=== PATIENT | female | born 1940 | race Caucasian/White ===

== ENCOUNTER 2017-12-11 13:40 | Inpatient (IN) | payer MEDICARE ==
[~2017-12-11 13:40] MED LIST: ISOVUE-370 76%-LOCM 1 ML ONE
--- NOTE | 2017-12-11 15:05 | CT ---
THORACIC SPINE CT SCAN WITHOUT IV CONTRAST; Date; 12/11/17 HISTORY: 77-year-old female with back pain following a slip and fall. FINDINGS: Noncontrast thoracic spine CT scan obtained. There is a severe burst fracture involving the T10 verte bral body with marked vertical height loss and some comminution with some mild retropulsion and mild indention of the ventral thecal sac, but without significant high grade central canal stenosis. The p osterior elements appear intact. There is no evidence for significant malalignment. There are noted t o be multiple small, less than 0.5 cm, nodular foci in both lungs, primarily subpleural in origin. No visualized rib fractures seen. IMPRESSION: Severe comminuted burst fracture of T10 vertebral body with severe vertical height loss and comminuti on with some mild retropulsion and very mild canal stenosis. Multiple small bilateral pulmonary nodul es up to approximately 0.4 cm in size. No other acute process. CODE LN. POS: [facility]
--- NOTE | 2017-12-11 15:14 | RAD ---
CHEST 1 VIEW: Date: 12/11/17 HISTORY: 77-year-old female with history of pain following a slip and fall. FINDINGS: Heart size is within normal limits. Mild linear and interstitial increased markings bilaterally havin g more of a chronic appearance. Vertical height loss of T10. No evidence for overt rib fracture, pneu mothorax, or pleural effusion. Mild chronic changes. No acute intrathoracic disease. POS: [facility]
[2017-12-11] MEDS ORDERED: Morphine 2 MG/ML SYRINGE ONE (16:15)
--- NOTE | 2017-12-11 17:14 | CT ---
CT BRAIN WITHOUT CONTRASTS: History: Fall. Comparison: None. FINDINGS: No acute territory infarct or hemorrhage. No midline shift or mass effect. Old lacunar infarct. Paranasal sinuses and mastoids are clear. IMPRESSION: No acute intracranial abnormality. POS: [facility]
[2017-12-11 17:42] LABS: #Basophils 0.1 thou/uL (0.0-0.2); #Eosinphils 0.6 thou/uL (0.0-0.7); #Lymphocytes 1.8 thou/uL (1.20-3.40); #Monocytes 1.1 thou/uL (0.11-0.59); #Neutrophils 9.1 thou/uL (1.40-6.50); %Basophils 0.6 % (0.0-1.0); %Eosinophils 5.1 % (0.0-10.0); %Lymphocytes 14.3 % (21.0-51.0); %Monocytes 8.4 % (0.0-10.0); %Neutrophils 71.6 % (42.0-75.0); Hemoglobin 13.2 g/dL (12.0-16.0); Mean Corpuscular HGB CONC 31.6 g/dL (32.0-36.0); Mean Corpuscular Volume 98.2 fl (81.0-99.0); Mean Platelet Volume 6.7 fL (7.4-10.4); Platelet Count 201 thou/uL (130-400); RBC Distribution Width 13.7 % (11.5-14.5); Red Blood Cell (RBC) Count 4.27 mill/uL (4.20-5.40); White Blood Cell (WBC) Count 12.7 thou/uL (4.8-10.8)
[2017-12-11 17:48] LABS: PTT 26.3 SEC (22.9-36.1); Prothrombin Time 13.7 SEC (12.0-14.7)
[2017-12-11 18:02] LABS: Anion Gap 12 mmol/L (10-20); BUN (Urea Nitrogen) 24 mg/dL (9.8-20.1); Calc. Creatinine Clearance 0 mL/min (70-130); Calcium 10.2 mg/dL (7.8-10.44); Carbon Dioxide 27 mmol/L (23-31); Chloride 102 mmol/L (98-107); Estimated GFR-MDRD 65; Glucose 86 mg/dL (83-110); Potassium 3.5 mmol/L (3.5-5.1); Sodium 137 mmol/L (136-145)
[2017-12-11 18:53] LABS: Bilirubin Negative (Negative); Blood, Urine Negative (Negative); Clarity CLEAR (Clear); Glucose, Urine (Dipstick) Negative (Negative); Leukocyte Negative (Negative); Nitrite Negative (Negative); Protein, Urine (Dipstick) Negative (Neg-Trace); Specific Gravity, Urine 1.018 (1.002-1.036); Urobilinogen 0.2 mg/dL (0.2-1.0); pH, Urine 7.5 (5.0-9.0)
--- NOTE | 2017-12-11 19:22 | PRG ---
DATE OF SERVICE: 12/11/2017 Fall, T10 fracture. Please see the Trauma PA's H&P for full details. Briefly, the patient fell sustaining T10 fracture, hemodynamically stable, neurologically intact and stable. Due to some abdominal pain, we are going to do CT of chest, abdomen, and pelvis as well. Th e patient is admitted to the Trauma service. Dr. Valenzuela already is aware of the patient. Dr. Merlin perez will take over for her care tomorrow morning.
--- NOTE | 2017-12-11 20:57 | CT ---
CT ANGIOGRAM OF THE NECK WITH AND WITHOUT CONTRAST: History: Fall with abrasion to the left neck. Comparison: None. FINDINGS: CT angiogram of the neck before and after intravenous administration of contrast are provided. Transv erse aorta is not aneurysmal. Vertebral arteries are co-dominant. No evidence for carotid dissection. There is some motion in the mid neck limiting evaluation. Left skin and subcutaneous fat contusion is seen. There is a hypodensity right lobe of the thyroid me asuring up to 11 mm. No hemodynamically significant stenosis of the carotids. Scarring in the lung apices. Moderate to severe degenerative disc space disease at C5-6. IMPRESSION: 1. Within the limits of this examination, no evidence for dissection. There is motion of the mid neck . 2. 11 mm hypodensity right lobe of the thyroid. Non-emergent ultrasound recommended. POS: [facility]
--- NOTE | 2017-12-11 21:01 | CT ---
CT ABDOMEN AND PELVIS WITH CONTRAST CT LIMITED LUMBOSACRAL SPINE WITH CONTRAST: History: Fall. Trauma. Comparison: Thoracic spine CT same day. FINDINGS: No significant change in the T10 burst fracture. Associated with this burst fracture is a coronally o riented fracture through the inferior one-third prevertebral body with no osseous attachment of the a nterior one-third vertebral body from the remaining vertebral body. There is some scarring in the flaca g bases. There are degenerative changes of the lumbar spine. No displaced fracture. The liver, gallbladder, sp so, and pancreas are all without acute injury. Moderate sized sliding hiatal hernia. No hydronephro sis. No intra mesenteric hemorrhage. No free intraperitoneal gas or fluid. Moderate diverticular disease s igmoid colon without inflammation. IMPRESSION: Aside from the T10 burst fracture, no other traumatic abnormality in the abdomen or pelvis. POS: [facility]
[2017-12-11] MEDS ORDERED: Dextrose 5% in Water 1,000 ML IV PRN (21:23)
[2017-12-11] MEDS ORDERED: Dextrose 50% Abboject 50 ML SYRINGE SLOW IVP PRN (21:23)
[2017-12-11] MEDS ORDERED: Acetaminophen 1,000 MG in Premix Bag 1 BAG IVPB PRN (21:23)
[2017-12-11] MEDS ORDERED: traMADol HCl 50 MG TAB PO PRN (21:23)
[2017-12-11] MEDS ORDERED: Ondansetron HCl/PF 4 MG/2 ML Vial IVP PRN (21:23)
[2017-12-11] MEDS ORDERED: hydrALAZINE 20 MG/ML VIAL SLOW IVP PRN (21:23)
--- NOTE | 2017-12-11 21:24 | CON ---
DATE OF CONSULTATION: 12/11/2017 HISTORY OF PRESENT ILLNESS: Ms. Rao is a 77-year-old female who [facility] to [facility] this evening after a fall. She was having severe low back pain. She has mild weakness in the legs; however, she is still able to stand and ambulate with assistance. She has no dermatomal sensory loss in the lower extremities and no signs of cauda equina syndrome. CT of the thoracic spi ne showed a T10 burst fracture with 90% height loss that is severe. There is minimal retropulsion in to the central canal. Ms. Rao has been having falls over the past 4 weeks. However, today, she i s unable to stand to her feet and she was brought to the hospital by the EMS. Neurosurgery was consu lted for the T10 burst fracture. The patient has been treated is being treated currently for the pas t 2 years by [facility] and has been on prednisone taper for temporal arteritis from 60 mg which in she is now on 12.5 mg. ALLERGIES: No known drug allergies. MEDICATIONS: 1. Taking Ecotrin full strength. 2. Taking prednisone 12.5 mg daily. The patient cannot remember the rest of her medications, please verify medications when patient's hus band brings them in. PAST MEDICAL HISTORY: Temporal arteritis, hypertension, T10 burst fracture, T12 compression fracture in 10/2017 after fall. PAST SURGICAL HISTORY: Appendectomy, hysterectomy, tonsillectomy. PSYCHIATRIC HISTORY: Anxiety. SOCIAL HISTORY: Drug use. No smoking history. REVIEW OF SYSTEMS: Patient is complaining of low back pain and general weakness in the lower extremi ties. Ten-point review of systems is complete, otherwise negative unless stated in the above HPI. PHYSICAL EXAMINATION: VITAL SIGNS: Blood pressure 141/81, pulse 76, respirations 18, O2 sats 94% on room air and temperatu re is 98.4. HEENT: Normocephalic, atraumatic. Hearing intact. Moist mucous membranes. NECK: Trachea is midline. EYES: Pupils are equal and reactive to light. Extraocular muscles are intact. Sclerae is white, no nicteric. CARDIOVASCULAR: The patient has regular rate and rhythm, normal S1, S2 heart sounds. No distal cyan osis or clubbing noted. BACK: The patient has large ecchymotic region on the left thoracic back. She does not know whether that is new or not. She also is very tender to palpation of the midline thoracic spine and has troub le rolling over in bed. She is nontender to palpation in the midline lumbar spine. RESPIRATORY: The patient has bilateral symmetric chest rise. Appears to have no shortness breath. EXTREMITIES: Upper extremities, 5/5 strength bilaterally. There is no dermatomal or sensory focal s ensory loss. Lower extremity, 4/5 strength in bilateral lower extremities. Pulses are equal and sym metric in the posterior tibial pulses. There is no sensory or focal motor weakness. NEUROLOGIC: Cranial nerves II-XII are grossly intact. Speech is fluent and she answers questions ap propriately. Patient has unsteady gait and is currently bedridden. GCS 15. ASSESSMENT: Ms. Rao is a 77-year-old female who has had several falls in the past. She fell toda y and has a severe T10 burst fracture with 90% height loss. We will put her on strict spine precauti ons, n.p.o. after midnight and put her in a TLSO clamshell brace. We will also get a PT/INR and chec k platelets. If there are any further questions, please feel free to contact Neurosurgery.
--- NOTE | 2017-12-11 21:53 | HP ---
REQUESTING PHYSICIAN: Basilia Gonzalez PA-C ADMITTING PHYSICIAN: Errol Medina MD CONSULTING PHYSICIAN: Adilia Valenzuela MD DATE OF ADMISSION: 12/11/2017 HISTORY OF PRESENT ILLNESS: The patient is a 77-year-old female who had a ground level fall earlier today. She reports she has had multiple falls in the recent past. She was told three weeks ago, she has a compression fracture of T10. She states her back pain is worse today. Workup in the ED ident ified a T10 compression fracture. Trauma services was consulted for admission and management. Dr. Margarito briceño, Neurosurgery, was consulted for the spinal fracture. The patient reports a history of temp oral arteritis. She has been on chronic steroid use. She states her pain worsen with movement. Tahira n is relieved with lying still. She denies any neuro deficits or focal weakness. PAST MEDICAL HISTORY: Hypertension, temporal arteritis. PAST SURGICAL HISTORY: Hysterectomy, tonsillectomy, and appendectomy. SOCIAL HISTORY: The patient lives at home with her . Denies alcohol use, drug use, and tobac co use. FAMILY HISTORY: Mother, father, and siblings with cancer. CURRENT LABORATORY STUDIES: CBC: WBC 12.7, RBC 4.27, hemoglobin 13.2, hematocrit 41.9, platelets 20 1. PT 13.7, INR 1.0. Chemistry: Sodium 137, potassium 3.5, chloride 102, carbon dioxide 27, BUN 24 , creatinine 0.85. DIAGNOSTIC IMAGING: Brain CT, no acute intracranial abnormality. Thoracic spine CT, severe comminut ed burst fracture of T10 vertebral body with severe vertical height loss and comminution with some mi ld retropulsion and very mild canal stenosis. Multiple small bilateral pulmonary nodules up to 0.4 c m in size. Chest, abdomen and pelvic CT pending. CTA neck pending. CURRENT MEDICATIONS: [employer]ML Forte suspension 1 drop left eye 2 times a day, prednisone 10 mg oral once a day, Nexium 40 mg oral once a day, Myrbetriq 50 mg oral once a day, cyclobenzaprine 10 mg oral once a day, simvastatin 20 mg oral once a day, calcium plus vitamin D 600 mg oral twice a day, escitalopr am 10 mg oral once a day, selenium 200 mcg oral once a day, aspirin 81 mg oral once a day, propranolo l 80 mg oral once a day, alprazolam 0.25 mg oral 3 times a day, ibuprofen 800 mg oral 2 times a day. It should be noted that the patient's has gone to collect her medication and this will be re conciled by the nurse on the floor. Medications will be restarted as appropriate. REVIEW OF SYSTEMS: Constitutional: Negative for fever, chills, or recent weight loss. HEENT: Preston es headaches, denies drainage from nose or ears. Cardiovascular: Denies chest pain. Denies palpita tions. Respiratory: Denies shortness of breath, denies cough. Gastrointestinal: Denies nausea, vo miting, diarrhea, constipation, or abdominal pain. Musculoskeletal: Endorses back pain and bilatera l rib pain. Skin: Abrasions in bilateral upper extremities and left neck. Neurologic: Reports inc rease in tremors and shuffling gait and past several months, becoming progressively worse. PHYSICAL EXAMINATION: VITAL SIGNS: Blood pressure 108/70, pulse 83, respirations 17, O2 sat 95% on room air. Pain is 0 at this time. CONSTITUTIONAL: A well-nourished, well-developed female with nontoxic appearing. HEENT: Contusion to left side of neck. No other trauma noted. Trachea midline. NECK: No JVD. RESPIRATORY: Bilateral breath sounds clear. Chest rise and fall symmetrical. CARDIOVASCULAR: Regular rate and rhythm. Heart sounds normal. ABDOMEN: Soft, nontender, nondistended. BACK: Tenderness to middle of back. Ecchymosis to left flank. EXTREMITIES: Bilateral upper extremities were neurovascularly intact, cap refill brisk. Bilateral l ower extremities were neurovascularly intact, cap refill brisk. NEUROLOGIC: GCS 15. Awake, alert, oriented x3. Strength equal in all extremities, 5/5. ASSESSMENT AND PLAN: 1. Status post ground level fall. 2. T10 compression fracture. 3. History of recent falls. 4. History of temporal arteritis. 5. History of chronic steroid use. 6. Contusion, left neck. 7. Acute traumatic pain, right upper quadrant and right subcostal area. PLAN: 1. Consult to Neurosurgery, Dr. Valenzuela. 2. TLSO brace ordered by Neurosurgery. 3. Admit the patient to surgical floor. 4. Regular diet this evening and n.p.o. after midnight. 5. Restart home medications when verified with family. 6. Schedule Tylenol for analgesia. 7. Valles catheter. 8. Bed rest until cleared by Neurosurgery. The patient was seen and examined with Dr. Medina, attending trauma surgeon, who agrees with the ass essment and plan. This patient was discussed at length with KAPIL Bucio, Neurosurgery.
[2017-12-12] MEDS: ALPRAZolam 0.25 MG TAB PO PRN ×3 (00:41→20:49)
[2017-12-12] MEDS: traMADol HCl 50 MG TAB PO PRN ×2 (00:42→20:50)
[2017-12-12] MEDS: Cyclobenzaprine 10 MG TAB PO PRN ×2 (00:42→20:49)
[2017-12-12] MEDS: Ibuprofen 600 MG TAB PO PRN ×2 (00:43→07:35)
[2017-12-12 03:12] VITALS: BMI 27.3
[2017-12-12 05:02] LABS: #Basophils 0.1 thou/uL (0.0-0.2); #Eosinphils 0.7 thou/uL (0.0-0.7); #Neutrophils 4.9 thou/uL (1.40-6.50); %Basophils 0.6 % (0.0-1.0); %Eosinophils 8.2 % (0.0-10.0); %Lymphocytes 22.7 % (21.0-51.0); %Monocytes 11.8 % (0.0-10.0); %Neutrophils 56.7 % (42.0-75.0); Hemoglobin 11.8 g/dL (12.0-16.0); Mean Corpuscular HGB CONC 32.4 g/dL (32.0-36.0); Mean Corpuscular Hemoglobin 31.7 pg (27.0-31.0); Mean Corpuscular Volume 97.8 fl (81.0-99.0); Mean Platelet Volume 7.1 fL (7.4-10.4); Platelet Count 180 thou/uL (130-400); RBC Distribution Width 13.8 % (11.5-14.5); Red Blood Cell (RBC) Count 3.71 mill/uL (4.20-5.40); White Blood Cell (WBC) Count 8.6 thou/uL (4.8-10.8)
[2017-12-12 05:14] LABS: Anion Gap 12 mmol/L (10-20); BUN (Urea Nitrogen) 22 mg/dL (9.8-20.1); Calc. Creatinine Clearance 57 mL/min (70-130); Calcium 9.6 mg/dL (7.8-10.44); Carbon Dioxide 27 mmol/L (23-31); Chloride 103 mmol/L (98-107); Estimated GFR-MDRD 54; Glucose 89 mg/dL (83-110); Potassium 3.6 mmol/L (3.5-5.1); Sodium 138 mmol/L (136-145)
--- NOTE | 2017-12-12 07:40 | PRG ---
DATE OF SERVICE: 12/12/2017 I personally interviewed and examined the patient and agree with documentation of Johan Goncalves PA-C, travis ated 12/11/2017. Briefly Taylor Rao is a very pleasant 77-year-old woman who has had temporal arteritis treated w ith chronic prednisone therapy for the last 24 months. 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 Ms. Rao has a burst fracture at T10 with minimal retropulsion. Fracture look s subacute to chronic given the denser nature of the T10 vertebrae compared to the vertebrae above an d below. Briefly, Ms. Rao has good neurological function in her lower extremities with the exception of the weakness that she has been having from chronic steroid use. Given the side effects from her steroids and the chronicity of their use, I imagine she has severe os teoporosis. A kyphoplasty procedure could be contemplated, although there is more risk with treating burst fractures rather than simple compression fractures with that procedure. Instrumented fusion a cross the fracture could also be considered, but given what is likely low density bone, the risk of s crew pullout is significant and wound healing issues including postoperative infection are high risk. Given those considerations, I think bracing with a rigid external TLSO is the best option upfront; however, will need to watch her over the next 2-3 days in the hospital and make sure she can tolerate bracing and that she can at least stand with assistance in a brace and start some therapy. If braci ng is impossible, the next option would be kyphoplasty procedure. There would be risk of the vertebr ae above and below for future fractures in the setting of a burst fracture there is increased risk of cement extravasation into the canal causing cord compression. My least favorite option would be the instrumented fusion given the difficulties of healing the incision with infection issues and the scr ew pullout rate. I will discuss it was her primary care physician as requested by her and he has actually aske d me to get in touch with Neurology at [facility]. I do not know that that will be necessary, but I am happy to make the call if that is what he wants. I will follow up after I speak with Dr. Tucker later today.
[2017-12-12] MEDS: predniSONE 1 MG TAB PO SCH (10:06)
[2017-12-12] MEDS: Propranolol HCl LA 80 MG CAP PO SCH (10:06)
[2017-12-12] MEDS: Calcium Carbonate + Vit D 250 MG TAB PO SCH ×2 (10:06→20:50)
[2017-12-12] MEDS ORDERED: Sodium Chloride 0.9% 250 ML IV SCH (14:30)
--- NOTE | 2017-12-12 15:37 | PRG ---
DATE OF SERVICE: 12/12/2017 ATTENDING PHYSICIAN: Humberto Sanabria D.O. SUBJECTIVE: Ms. Rao was admitted yesterday evening status post ground level fall with a T10 burst fracture. Neurosurgery, Dr. Valenzuela, was consulted. She was seen and TLSO brace was ordered. Parker lewis has been stable on the surgical floor. Pain has been well controlled since last night. She has king d good neurologic function in her upper and lower extremities. She did report chronic weakness from chronic steroid use. OBJECTIVE: VITAL SIGNS: Temperature 97.7, pulse 74, respirations 16, O2 sat 90% on room air, blood pressure 128 /76. HEENT: Ecchymosis to left side of neck. LUNGS: Bilateral breath sounds clear. RESPIRATORY: Even unlabored. CARDIOVASCULAR: Regular rate and rhythm. Heart sounds normal. ABDOMEN: Soft, nontender, nondistended. EXTREMITIES: Moves all extremities well. No neurologic deficit. No focal deficit. Strength 5/5 in all extremities. NEUROLOGIC: GCS 15, alert and oriented x3. ASSESSMENT: 1. Status post ground level fall. 2. T10 burst fracture. 3. Chronic weakness from chronic steroid use, bilateral lower extremities. PLAN: 1. Await final recommendations from Neurosurgery Service regarding the T10 fracture. 2. Physical and occupational therapy with restrictions per Neurosurgical Service. 3. Continue home medication regimen and current pain medication. 4. I anticipate patient will need rehabilitation due to her chronic and progressive weakness. The patient was seen and examined with Dr. Sanabria who agrees with the assessment and plan.
[2017-12-12] MEDS ORDERED: D5 1/2 NS w/20 mEq KCL 1,000 ML IV SCH (16:00)
[2017-12-12] MEDS ORDERED: Simvastatin 20 MG TAB PO SCH (21:00)
[2017-12-12] MEDS ORDERED: predniSONE 5 MG TAB PO SCH (21:00)
[2017-12-13 05:07] LABS: Band 4 % (5-11); Hemoglobin 12.1 g/dL (12.0-16.0); Lymphocytes 11 % (21-51); MDiff Complete? YES; Mean Corpuscular HGB CONC 32.3 g/dL (32.0-36.0); Mean Corpuscular Hemoglobin 31.5 pg (27.0-31.0); Mean Corpuscular Volume 97.4 fl (81.0-99.0); Mean Platelet Volume 6.8 fL (7.4-10.4); Monocytes 1 % (0-10); Neutrophil 82 % (42-75); PLT Morphology Comment Appears Adequate; Platelet Count 182 thou/uL (130-400); RBC Distribution Width 13.7 % (11.5-14.5); RBC Morphology Normal; Reactive Lymphocytes 2 % (0-10); Red Blood Cell (RBC) Count 3.83 mill/uL (4.20-5.40)
--- NOTE | 2017-12-13 06:20 | PRG ---
DATE OF SERVICE: 12/13/2017 SUBJECTIVE: Ms. Rao is a 77-year-old female who I saw in her room this morning. She was alert an d oriented x4 and there are no acute changes in her neurologic status. Yesterday, she received a TLS O clamshell brace and it is on in bed this morning. She admits it has relieved some of her pain. Ov ernight her vital signs have been stable. Labs this morning showed a red blood cell count of 3.83. She is status post fall with a T10 burst f racture that is severe. We will continue to use the brace for first line treatment. I will consult with Dr. Valenzuela today about adding therapy and possibly rehab screening to her regimen. If there are any further questions, please feel free to contact Neurosurgery.
--- NOTE | 2017-12-13 06:23 | PRG ---
DATE OF SERVICE: 12/13/2017 I saw Ms. Rao in her hospital room this morning. Vitals overnight have been stable. Ms. Rao s till has back pain. A brace has been fitted to her and is applied. She is wearing it in bed. Ms. Rao neurological examination is stable. She has reasonable strength and sensation all the way down to the toes, including joint position sense. The brace seems to be fitting well. My plan for Ms. Rao is to slowly mobilize with the brace tightly applied in the thoracic area. A reasonable goal for today will be sitting at bedside with assistance, perhaps even standing and taken a step by tomorrow, I think that is great progress. We will have to look into inpatient rehabilitat ion and jail placement while she makes a recovery from this fracture. If we are not making a ny progress by the weekend, we will consider cement augmentation or instrumented fusion. Both of tho se carry their own risks and the patient and her would like to avoid that if she can do well in bracing. I think it is reasonable to try.
--- NOTE | 2017-12-13 06:35 | PRG ---
DATE OF SERVICE: 12/12/2017 The patient is a 77-year-old female status post ground level fall with T10 burst fracture. She has b een stable on surgical floor and vital signs have been stable. PHYSICAL EXAMINATION: Unchanged from the a.m. progress note. At this point, patient will be treated with nonoperative management, brace, PT, OT, discharge plannin g. Continue care as per the a.m. progress note.
[2017-12-13] MEDS: Propranolol HCl LA 80 MG CAP PO SCH (08:54)
[2017-12-13] MEDS: Calcium Carbonate + Vit D 250 MG TAB PO SCH (08:54)
[2017-12-13] MEDS: predniSONE 1 MG TAB PO SCH (08:55)
[2017-12-13] MEDS: ALPRAZolam 0.25 MG TAB PO PRN (15:04)
[2017-12-13] MEDS: traMADol HCl 50 MG TAB PO PRN (15:04)
[2017-12-13 16:50] VITALS: BP 139/86; TEMP 98.6
--- NOTE | 2017-12-13 23:44 | DIS ---
DATE OF ADMISSION: 12/11/2017 DATE OF DISCHARGE: 12/13/2017 ADMISSION DIAGNOSES: 1. Status post ground level fall. 2. T10 compression fracture. 3. History of chronic steroid use. 4. Contusion left neck. 5. Acute traumatic pain, right upper quadrant, right subcostal area. CONSULTATIONS: Neurosurgery, Dr. Valenzuela. PROCEDURES: None. SUMMARY: Patient is a 77-year-old woman, who reportedly had a ground level fall earlier in the day, had continued back pain, presented to the emergency department, underwent evaluation and examination to include CT scan that revealed a T10 compression fracture. The patient was evaluated by Neurosurge ry, who recommended nonoperative conservative management with a TLSO brace. The patient was fitted w ith a TLSO brace and began working with physical and occupational therapy. At time of discharge, the patient was ambulatory. She was neurologically intact. Her bowel function had returned. Her pain was controlled and she was tolerating p.o. She was discharged to rehab and we will follow up with Ne urosurgery in 2-3 weeks or sooner as needed.
== END 2017-12-13 20:03 | DRG 552 ==
LOC: ERS 13:40 → SURG B 19:10
PROVIDERS: ADMIT Surgery; ATTEND Surgery
DX: S22.070A Wedge compression fracture of T9-T10 vertebra, initial encounter for closed fracture (principal); M31.6 Other giant cell arteritis; I10 Essential (primary) hypertension; Z91.81 History of falling; Z79.82 Long term (current) use of aspirin; Z79.52 Long term (current) use of systemic steroids; W19.XXXA Unspecified fall, initial encounter; S10.93XA Contusion of unspecified part of neck, initial encounter; G89.11 Acute pain due to trauma; F41.9 Anxiety disorder, unspecified
CPT/HCPCS: 36415; 51702; 70450; 70498; 71045; 72128; 74177; 80048; 81003; 85025; 85610; 85730; 96374; G0390; G8978-GP-CL; G8979-GP-CJ; G8987-GO-CL; G8988-GO-CJ; J2270; L0639

== ENCOUNTER 2018-02-16 10:06 | Outpatient (CLI) | payer MEDICARE ==
--- NOTE | 2018-02-16 11:53 | RAD ---
THORACIC SPINE THREE VIEWS: HISTORY: History of fracture, status post fall. COMPARISON: CT examination from 12/01/2017. FINDINGS: The bones are diffusely demineralized. There is a burst fracture at T10. It appears to be fairly si milar in appearance to the previous examination. No new compression fractures. IMPRESSION: 1. Diffuse bony demineralization. 2. Burst fracture involving the T10 vertebral body, stable. POS: [facility]
== END 2018-02-16 10:07 | disposition home or self-care (01) ==
LOC: TBSIIMAG 10:06
PROVIDERS: ATTEND Neurological Surgery
DX: S22.008A Other fracture of unspecified thoracic vertebra, initial encounter for closed fracture (principal); S22.071A Stable burst fracture of T9-T10 vertebra, initial encounter for closed fracture; M81.0 Age-related osteoporosis without current pathological fracture
CPT/HCPCS: 72072

== ENCOUNTER 2019-04-25 09:50 | Outpatient (CLI) | payer MEDICARE ==
--- NOTE | 2019-04-25 16:34 | BD ---
Exam: DEXA Bone Density 04/25/19 HISTORY: 79-year-old postmenopausal female for screening. COMPARISON: None. Lumbar Spine: BMD (g/cm2) T-SCORE L1 0.920 -0.6 L2 1.015 -0.1 L3 1.071 -0.1 L4 0.968 -0.8 L1-L4 0.994 -0.5 Left Femoral Neck: 0.657 -1.7 Total Femur: 0.883 -9.5 Impression: Osteopenia. This patient has approximately a four times increased risk of fracture when compared wi th young patients with normal bone mineral density. POS: [facility]
== END 2019-04-25 09:51 | disposition home or self-care (01) ==
LOC: BICMAMMO 09:50
PROVIDERS: ATTEND Internal Medicine Rheumatology
DX: Z13.820 Encounter for screening for osteoporosis (principal); M81.0 Age-related osteoporosis without current pathological fracture; M85.852 Other specified disorders of bone density and structure, left thigh
CPT/HCPCS: 77080

== ENCOUNTER 2021-10-01 03:35 | Emergency (ER) | payer MEDICARE ==
[2021-10-01 04:30] LABS: #Eosinphils 0.1 thou/uL (0.0-0.7); #Monocytes 0.7 thou/uL (0.11-0.59); #Neutrophils 4.1 thou/uL (1.40-6.50); %Basophils 0.1 % (0.0-1.0); %Eosinophils 2.3 % (0.0-10.0); %Lymphocytes 16.3 % (21.0-51.0); %Monocytes 11.4 % (0.0-10.0); Hemoglobin 11.5 g/dL (12.0-16.0); Mean Corpuscular HGB CONC 33.6 g/dL (32.0-36.0); Mean Corpuscular Hemoglobin 31.7 pg (27.0-31.0); Mean Corpuscular Volume 94.4 fL (78.0-98.0); Mean Platelet Volume 6.7 fL (7.4-10.4); Platelet Count 165 thou/uL (130-400); RBC Distribution Width 13.1 % (11.5-14.5); Red Blood Cell (RBC) Count 3.63 mill/uL (4.20-5.40); White Blood Cell (WBC) Count 5.9 thou/uL (4.8-10.8)
[2021-10-01 04:52] LABS: ALT (SGPT) 11 U/L (8-55); AST (SGOT) 15 U/L (5-34); Albumin 3.9 g/dL (3.4-4.8); Alkaline Phosphatase 38 U/L (40-110); Anion Gap 11 mmol/L (10-20); BUN (Urea Nitrogen) 23 mg/dL (9.8-20.1); Bilirubin, Total 0.5 mg/dL (0.2-1.2); Calc. Creatinine Clearance 0 mL/min (70-130); Calcium 9.5 mg/dL (7.8-10.44); Carbon Dioxide 26 mmol/L (23-31); Chloride 107 mmol/L (98-107); Globulin 2.4 g/dL (2.4-3.5); Glucose 106 mg/dL (83-110); Potassium 4.5 mmol/L (3.5-5.1); Protein, Total 6.3 g/dL (5.8-8.1); Sodium 139 mmol/L (136-145)
== END 2021-10-01 05:44 | disposition home or self-care (01) ==
LOC: ERS 03:35
DX: R05.9 Cough, unspecified (principal); I10 Essential (primary) hypertension; Z79.899 Other long term (current) drug therapy; Z79.82 Long term (current) use of aspirin
CPT/HCPCS: 71045; 80053; 84484; 85025; 93005